=== PATIENT | female | born 1995 | race Two or more races ===

== ENCOUNTER 2016-07-12 03:32 | Emergency (ER) | payer BC ==
[2016-07-12] MEDS ORDERED: Ibuprofen TAB* 600 MG PO ONE (05:06)
[2016-07-12] MEDS ORDERED: Sulfamethox/Trimethoprim DS 800/160* TAB PO ONE (05:06)
[2016-07-12] MEDS ORDERED: Ondansetron ODT TAB* 4 MG PO ONE ×2 (05:06→05:37)
[2016-07-12 05:29] LABS: Urine Bacteria 1+ (Absent); Urine Bilirubin Negative (Negative); Urine Glucose Negative (Negative); Urine Nitrite Positive (Negative)
[2016-07-12 06:16] VITALS: BP 108/64
--- NOTE | 2016-07-15 07:14 | PN ---
Progress Note - Progress Note Note: Final culture grew E coli >100,000. Patient placed on bactrim at d/c which is sensitive too.
--- NOTE | 2016-07-23 22:13 | ED ---
Anusha Isaac SooYoung, scribed for John Lawrence MD on 07/12/16 at 0447 . Back Pain - HPI Summary HPI Summary: A 21 y/o F presents to ED with c/o L flank pain radiating to L abd that woke her from sleep tonight. Associated sx include nausea; frequency and dysuria for past few days. Pt took OTC medication, Azo, today. She notes past UTIs with similar sx and did not take an ABX. Denies vaginal discharge. LNMP was approx 3 months ago which she says is normal for her, pt is taking BC. She states she does not believe sx are STI/STD related, but is OK to checking for such. - History of Current Complaint Chief Complaint: EDFlankPain Stated Complaint: BACK PAIN Time Seen by Provider: 07/12/16 03:33 Hx Obtained From: Patient Onset/Duration: Lasting Hours, Still Present Back Pain Location: Is Discrete @ - L flank, Radiates To - L abd Severity Currently: Severe Pain Intensity: 8 Pain Scale Used: 0-10 Numeric Associated Signs And Symptoms: Positive: Other - pos: dysuria, frequency for last three days; nausea - Allergies/Home Medications Allergies/Adverse Reactions: Allergies Allergy/AdvReac Type Severity Reaction Status Date / Time Cephalexin [From Keflex] Allergy Unknown Verified 07/12/16 04:03 Reaction Details PMH/Surg Hx/FS Hx/Imm Hx Previously Healthy: Yes Sensory History: Denies: Hx Deafness Infectious Disease History: No Infectious Disease History: Denies: Traveled Outside the [place] in Last 30 Days - Social History Occupation: Unemployed, Student Lives: With Family - roommates Review of Systems Positive: Abdominal Pain, Nausea Positive: dysuria, frequency, flank pain - L All Other Systems Reviewed And Are Negative: Yes Physical Exam Triage Information Reviewed: Yes Vital Signs On Initial Exam: Initial Vitals Temp Pulse Resp BP Pulse Ox 99.1 F 94 16 111/50 99 07/12/16 03:54 07/12/16 03:54 07/12/16 03:54 07/12/16 03:54 07/12/16 03:54 Vital Signs Reviewed: Yes Appearance: Positive: Ill-Appearing - MILDLY, Pain Distress - MILD TO MODERATE Skin: Positive: Warm, Skin Color Reflects Adequate Perfusion, Dry Head/Face: Positive: Normal Head/Face Inspection Eyes: Positive: EOMI, JN ENT: Positive: Normal ENT inspection Neck: Positive: Supple, Nontender Respiratory/Lung Sounds: Positive: Clear to Auscultation, Breath Sounds Present Cardiovascular: Positive: RRR Abdomen Description: Positive: Soft, Other: - TENDER AT L FLANK AND L ABD Bowel Sounds: Positive: Present Musculoskeletal: Positive: Normal, Strength/ROM Intact Neurological: Positive: Normal, Sensory/Motor Intact, Alert, Oriented to Person Place, Time Psychiatric: Positive: Affect/Mood Appropriate Diagnostics - Vital Signs Vital Signs Temp Pulse Resp BP Pulse Ox 07/12/16 03:54 99.1 F 94 16 111/50 99 - Laboratory Lab Results: Lab Results 07/12/16 07/12/16 Range/Units 05:00 05:00 Urine Color Coral Urine Appearance Cloudy Urine pH 6.0 (5-9) Ur Specific [place] 1.016 (1.010-1.030) Urine Protein 2+(100 mg/dl) H (Negative) Urine Ketones Negative (Negative) Urine Blood 2+ H (Negative) Urine Nitrate Positive H (Negative) Urine Bilirubin Negative (Negative) Urine Urobilinogen Positive H (Negative) Ur Leukocyte Esterase 3+ H (Negative) Urine WBC (Auto) 3+(>20/hpf) H (Absent) Urine RBC (Auto) 3+(>10/hpf) H (Absent) Ur Squamous Epith Cells Present H (Absent) Urine Bacteria 1+ H (Absent) Urine Glucose Negative (Negative) C.trachomatis (Amp Det) Negative (Negative) N.gonorrhoeae (Amp Det) Negative (Negative) Lab Statement: Any lab studies that have been ordered have been reviewed, and results considered in the medical decision making process. Back Pain Course/Dx - Course Assessment/Plan: DISCHARGE HOME STABLE - Diagnoses Provider Diagnoses: UTI (urinary tract infection), Abdominal pain Discharge - Discharge Plan Condition: Stable Disposition: HOME Prescriptions: Ondansetron ODT TAB* [Zofran Odt TAB*] 4 mg PO Q6H PRN #5 tab.odt PRN Reason: Nausea Sulfamethox/Trimethoprim DS* [Bactrim DS 800/160 TAB*] 1 tab PO BID #20 tab Patient Education Materials: Urinary Tract Infection in Women (ED) Referrals: [facility] MYRA Montes De Oca [Primary Care Provider] - Additional Instructions: FOLLOW UP WITH YOUR GANNETT. TAKE IBUPROFEN 600MG EVERY 6 HOURS NEEDED. RETURN TO THE EMERGENCY DEPARTMENT FOR ANY WORSENING OF YOUR CONDITION; PAIN, FEVER, YOU FEEL ILL OR QUESTIONS OR CONCERNS. The documentation as recorded by the Anusha thompson SooYoung accurately reflects the service I personally performed and the decisions made by me, John Lawrence MD.
== END 2016-07-12 06:12 | disposition home or self-care (01) ==
LOC: ED 03:32
DX: N39.0 Urinary tract infection, site not specified (principal); R10.84 Generalized abdominal pain; R11.0 Nausea; R30.0 Dysuria
CPT/HCPCS: 81003; 81015; 87077; 87086; 87186; 87491; 87591; 99282; A9270-GY